=== PATIENT | male | born 1960 | race Two or more races ===

== ENCOUNTER 2020-03-11 23:16 | Inpatient (IN) | payer OTHER ==
[~2020-03-11] VITALS: Ht 177.8 cm; Wt 127.5 kg
[2020-03-12 01:11] LABS: Albumin 3.4 g/dL (3.4-5.0); BUN/Creatinine Ratio 10.1; Calcium 8.4 mg/dL (8.5-10.1); Potassium 3.6 mmol/L (3.5-5.1)
[2020-03-12 01:16] LABS: Bilirubin, Total 0.4 mg/dL (0.2-1.0); Total Protein 8.4 g/dL (6.4-8.2)
[2020-03-12 01:24] LABS: Basophils # (auto) 0.1 10 ^3/uL (0-0.2); Basophils % (auto) 1.1 % (0.0-2.0); Eosinophils # (auto) 0.4 10 ^3/uL (0-0.8); Eosinophils % (auto) 4.9 % (0.0-7.0); Hematocrit 44.9 % (41.0-53.0); Hemoglobin 15.5 g/dL (13.5-17.5); Lymphocytes # (auto) 4.1 10 ^3/uL (0.4-5.4); Lymphocytes % (auto) 47.2 % (10.0-50.0); Mean Corpuscular Hemoglobin 31.8 pg (28.0-32.0); Mean Corpuscular Hgb Conc. 34.6 g/dL (32.0-36.0); Mean Corpuscular Volume 91.7 fL (80.0-100.0); Monocytes # (auto) 0.8 10 ^3/uL (0-1.3); Monocytes % (auto) 8.9 % (0.0-12.0); Neutrophils # (auto) 3.3 10 ^3/uL (1.6-8.6); Neutrophils % (auto) 37.9 % (37.0-80.0); Nucleated Red Blood Cells % 0.1 %; Platelet Count (auto) 168 10^3/uL (140-450); Red Blood Cells 4.89 10^6/uL (4.5-5.90); Red Cell Distribution Width 13.4 % (11.8-14.3); White Blood Cell 8.7 10^3/uL (4.4-10.8)
[2020-03-12] MEDS ORDERED: ASPirin 81 mg TAB PO ONE (01:45)
[2020-03-12] MEDS ORDERED: ATORVASTATIN 20 MG TAB PO ONE (01:45)
[2020-03-12] MEDS ORDERED: ONDANSETRON HCL 4 MG/2 ML VIAL IV ONE (01:45)
[2020-03-12] MEDS ORDERED: MORPHINE SULFATE 4 MG/ML SYR/VIAL IV ONE (01:45)
[2020-03-12] MEDS ORDERED: HEPARIN SODIUM (PORCINE) 5000 UNITS/ML 1ML VIAL IV ONE (06:30)
[2020-03-12] MEDS ORDERED: NITROGLYCERIN 0.4 MG SL TAB SL PRN (07:30)
[2020-03-12] MEDS ORDERED: HYDROcodone-ACET 5/325MG TAB PO PRN (07:30)
[2020-03-12] MEDS ORDERED: LORazepam 0.5 MG TAB PO PRN (07:30)
[2020-03-12] MEDS ORDERED: DOCUSATE SOD 100 MG CAP PO PRN (07:30)
[2020-03-12] MEDS ORDERED: ONDANSETRON HCL 4 MG/2 ML VIAL IV PRN ×2 (07:30)
[2020-03-12] MEDS ORDERED: ACETAMINOPHEN 325 MG TAB PO PRN ×2 (07:30)
[2020-03-12] MEDS: HEPARIN DRIP/D5W 100UNITS/ML 250 ML IV SCH (07:30)
[2020-03-12] MEDS ORDERED: MORPHINE SULF INJ 2 MG/ML SYRINGE 1ML IV PRN (07:30)
[2020-03-12 07:31] LABS: INR 1.04 (0.9-1.15); Partial Thromboplastin Time 29.4 sec (23.64-32.05)
[2020-03-12 08:14] LABS: Basophils # (auto) 0.1 10 ^3/uL (0-0.2); Basophils % (auto) 0.7 % (0.0-2.0); Eosinophils # (auto) 0.3 10 ^3/uL (0-0.8); Eosinophils % (auto) 3.1 % (0.0-7.0); Hematocrit 44.2 % (41.0-53.0); Hemoglobin 14.9 g/dL (13.5-17.5); Lymphocytes # (auto) 4.3 10 ^3/uL (0.4-5.4); Lymphocytes % (auto) 42.1 % (10.0-50.0); Mean Corpuscular Hemoglobin 31.2 pg (28.0-32.0); Mean Corpuscular Hgb Conc. 33.8 g/dL (32.0-36.0); Mean Corpuscular Volume 92.5 fL (80.0-100.0); Monocytes # (auto) 0.8 10 ^3/uL (0-1.3); Monocytes % (auto) 8.1 % (0.0-12.0); Neutrophils # (auto) 4.7 10 ^3/uL (1.6-8.6); Nucleated Red Blood Cells % 0.2 %; Platelet Count (auto) 151 10^3/uL (140-450); Red Blood Cells 4.78 10^6/uL (4.5-5.90); Red Cell Distribution Width 13.2 % (11.8-14.3); White Blood Cell 10.3 10^3/uL (4.4-10.8)
[2020-03-12] MEDS: ASPirin 81 mg TAB PO SCH (08:14)
[2020-03-12] MEDS: SODIUM CHLORIDE 0.9% 1,000 ML IV SCH (08:28)
[2020-03-12 08:41] LABS: Anion Gap 7 (5-15); Blood Urea Nitrogen 13 mg/dL (7-18); Calcium 8.6 mg/dL (8.5-10.1); Carbon Dioxide 25 mmol/L (21-32); Chloride 102 mmol/L (98-107); Glucose 125 mg/dL (74-106); Potassium 3.8 mmol/L (3.5-5.1); Sodium 134 mmol/L (136-145)
[2020-03-12 08:44] LABS: BUN/Creatinine Ratio 11.7; Cholesterol 268 mg/dL (< 200); GFR African American 87 mL/min; GFR Non-African American 72 mL/min; HDL Cholesterol 21 mg/dL (40-59); Triglycerides 675 mg/dL (< 150)
[2020-03-12] MEDS ORDERED: DOCUSATE SOD 100 MG CAP PO SCH (10:00)
[2020-03-12] MEDS ORDERED: ENOXAPARIN SOD 30 MG/0.3 ML SYRINGE IV SCH (10:00)
--- NOTE | 2020-03-12 10:25 | NUR ---
Telemetry admit from [facility] admitted to Telemetry unit after SBAR received. Patient oriented to Marni Kathleen, RN primary RN, unit, room, bed, and unit policies regarding patient care and visiting hours. Patient now on continuous telemetry monitoring, tele box # 64 and telemetry reading on arrival to unit is SR 77. Patient placed on bedside oxygen, weighed by bedscale and encouraged to call if they need something. All questions and concerns addressed, patient verbalized understanding. Note:
[2020-03-12] MEDS: CARVEDILOL 3.125 MG TAB PO SCH (10:44)
[2020-03-12] MEDS: CLOPIDOGREL BISULFATE 75 MG TAB PO SCH (10:45)
[2020-03-12] MEDS: LISINOPRIL 20 MG TAB PO SCH (10:45)
--- NOTE | 2020-03-12 12:05 | NUR ---
Patient's : India Rosado: [phone]. She is requesting to speak with Dr. Luo. She states the patient has short-term memory loss and may not understand what he is being told by doctors.
--- NOTE | 2020-03-12 12:08 | NUR ---
Page placed to Dr. Luo re cardiology consult. Patient experiencing bradycardia and pauses. Patient is asymptomatic, denies chest pain.
[2020-03-12 12:58] LABS: Alcohol, Urine < 3.0 mg/dL (0-5); Amphetamine Screen, Urine NEGATIVE (NEGATIVE); Barbiturate Scree,Urine NEGATIVE (NEGATIVE); Benzodiazephine Screen, Urine NEGATIVE (NEGATIVE); Cannabinoid Screen, Urine NEGATIVE (NEGATIVE); Cocaine Screen, Urine NEGATIVE (NEGATIVE); Opiate Scree,Urine NEGATIVE (NEGATIVE); Phencyclidine Screen, Urine NEGATIVE (NEGATIVE)
[2020-03-12 14:03] LABS: INR 1.07 (0.9-1.15)
[2020-03-12 14:04] VITALS: BP 129/82
--- NOTE | 2020-03-12 14:21 | NUR ---
Return call from Dr. Luo. He was updated on patient's condition, troponin results, and Heparin drip.
--- NOTE | 2020-03-12 14:47 | NUR ---
PTT 37.9. Heparin drip increased by 200 units/hr. PTT in 6 hours.
--- NOTE | 2020-03-12 14:54 | NUR ---
Third troponin 57.0. Page placed to Dr. Luo.
[2020-03-12 17:00] VITALS: BP 104/69
[2020-03-12 20:00] VITALS: BP 129/82
--- NOTE | 2020-03-12 20:23 | NUR ---
PAGE OUT TO DR SHAHID BECAUSE PT WANTS A SLEEPING PILL-AND TO ASK MD IF HE WANTS A TROPONIN REDRAW BECAUSE THE TROPONIN LEVEL IS 57. [facility] NUMBER IS [phone] AND ANSWERING SERVICE REP'S NAME IS KATH.
--- NOTE | 2020-03-12 21:12 | NUR ---
HEPARIN DRIP ADJUSTED TO 12 ML PER HOUR BECAUSE APTT IS 43.6
[2020-03-12 21:38] LABS: INR 1.05 (0.9-1.15); Partial Thromboplastin Time 43.6 sec (23.64-32.05)
[2020-03-12 21:57] VITALS: BP 114/71
--- NOTE | 2020-03-12 22:06 | NUR ---
PT TOOK OFF PULSE OX AND C-PAP. STATES BOTH MACHINES ARE TOO NOISY AND HE CANNOT SLEEP WITH THEM ON.
[2020-03-12] MEDS: ATORVASTATIN 20 MG TAB PO SCH (22:34)
[2020-03-13] MEDS: SODIUM CHLORIDE 0.9% 1,000 ML IV SCH ×2 (00:08→17:27)
[2020-03-13] MEDS: HEPARIN DRIP/D5W 100UNITS/ML 250 ML IV SCH ×2 (03:47→20:08)
[2020-03-13] MEDS: CARVEDILOL 3.125 MG TAB PO SCH ×3 (04:31→21:27)
--- NOTE | 2020-03-13 05:18 | NUR ---
PT RESTING WITH EYES CLOSED RESP EVEN UNLAB VITAL SIGNS STABLE.
[2020-03-13 05:46] VITALS: BP 99/60
--- NOTE | 2020-03-13 06:08 | NUR ---
Heparin dose: APTT result is 56.0. No change in Heparin dose per protocol. Continue at 16 ML / HR. Addendum: 03/14/20 at 0611 by Mana Fermin RN correction date and time: 03/13/20 at 23:15.
[2020-03-13 06:28] LABS: Basophils # (auto) 0.1 10 ^3/uL (0-0.2); Eosinophils # (auto) 0.5 10 ^3/uL (0-0.8); Eosinophils % (auto) 5.7 % (0.0-7.0); Hematocrit 43.6 % (41.0-53.0); Hemoglobin 15.1 g/dL (13.5-17.5); Lymphocytes # (auto) 4.4 10 ^3/uL (0.4-5.4); Mean Corpuscular Hgb Conc. 34.7 g/dL (32.0-36.0); Mean Corpuscular Volume 92.1 fL (80.0-100.0); Monocytes # (auto) 0.7 10 ^3/uL (0-1.3); Monocytes % (auto) 8.2 % (0.0-12.0); Neutrophils # (auto) 2.9 10 ^3/uL (1.6-8.6); Neutrophils % (auto) 34.1 % (37.0-80.0); Nucleated Red Blood Cells % 0.4 %; Platelet Count (auto) 150 10^3/uL (140-450); Red Blood Cells 4.73 10^6/uL (4.5-5.90); Red Cell Distribution Width 13.6 % (11.8-14.3); White Blood Cell 8.6 10^3/uL (4.4-10.8)
--- NOTE | 2020-03-13 07:30 | NUR ---
Opening Shift Note RECEIVED REPORT FROM NOC RN. Assumed care of patient, awake and alert. No S/S of distress/SOB or pain. BED IN LOWEST, LOCKED POSITION WITH SIDERAILS UP x2 AND CALL LIGHT WITHIN REACH. Instructed on POC and to call for assist PRN, will continue to monitor for changes Q1hr and PRN.
[2020-03-13 09:00] VITALS: BP 99/64
[2020-03-13 10:03] LABS: INR 1.07 (0.9-1.15); Partial Thromboplastin Time 46.7 sec (23.64-32.05)
--- NOTE | 2020-03-13 10:13 | NUR ---
DR. Anna NAGY AT BEDSIDE.
--- NOTE | 2020-03-13 10:45 | NUR ---
PHARMACIST CALLED REGARDING HEPARIN DRIP. ORDERED INCREASE OF 2 ML/HR BASED ON PTT RESULT AND PROTOCOL. HEPARIN NOW AT 16 ML/HR.
[2020-03-13] MEDS: LISINOPRIL 20 MG TAB PO SCH (11:34)
[2020-03-13] MEDS: ASPirin 81 mg TAB PO SCH (11:34)
[2020-03-13] MEDS: CLOPIDOGREL BISULFATE 75 MG TAB PO SCH (11:35)
[2020-03-13 13:00] VITALS: BP 104/67
[2020-03-13 17:00] VITALS: BP 117/72
--- NOTE | 2020-03-13 17:03 | NUR ---
LEFT HEART CATH CONSENTS SIGNED AND PLACED IN CHART.
--- NOTE | 2020-03-13 18:52 | NUR ---
SPOKE W/ PT ABOUT NOC CPAP USE. HE STATES IT MAKES TOO MUCH NOISE AND THAT HE IS USED TO WEARING A SMALLER MASK. I EXPLAINED TO PT THAT I COULD TRY TO PLACE HIM ON A NASAL MASK, HE DECLINED. STATES THAT IF HE CHANGES HIS MIND HE WILL HAVE ME PAGED. CURRENTLY ON R/A 95%, HR 65 AND RR 20. NO DISTRESS NOTED.
--- NOTE | 2020-03-13 19:10 | NUR ---
Opening Shift Note Received report from SHYANN Chadwick and assumed care of patient, awake and alert. No S/S of distress/SOB or pain. With Heparin drip infusing well at 16 ML / hr .Instructed to call for assist if needed and verbalized understanding . Will continue to monitor .
[2020-03-13 19:17] LABS: INR 1.03 (0.9-1.15); Partial Thromboplastin Time 55.7 sec (23.64-32.05)
--- NOTE | 2020-03-13 20:00 | NUR ---
Heparin dose: APTT result is 55.7.No change on Heparin dose per protocol. Continue at 16 ml/hr. Will continue to monitor.
--- NOTE | 2020-03-13 20:20 | NUR ---
Called/paged paged for clarification re: Heparin drip. Waiting for call back. Continue care.
[2020-03-13] MEDS: ATORVASTATIN 20 MG TAB PO SCH (21:26)
[2020-03-13 22:00] VITALS: BP 108/58
--- NOTE | 2020-03-13 22:18 | NUR ---
returned call returned call, updated on patient status and reason for call, orders received.Hold Heparin drip at 0700. Continue care.
--- NOTE | 2020-03-13 22:25 | NUR ---
MD Called/paged paged re: Lovenox medication and patient on Heparin drip. Waiting for call back. Continue care.
--- NOTE | 2020-03-13 22:36 | NUR ---
returned call returned call, updated on patient status and reason for call, orders received.D/C Lovenox since patient on Heparin drip. Continue care.
[2020-03-13 23:43] LABS: INR 1.05 (0.9-1.15)
[2020-03-14 05:00] VITALS: BP 96/50
[2020-03-14 06:14] LABS: Potassium 4.1 mmol/L (3.5-5.1)
[2020-03-14 06:24] LABS: Albumin 3.3 g/dL (3.4-5.0); BUN/Creatinine Ratio 15.5; Bilirubin, Total 0.6 mg/dL (0.2-1.0); Calcium 8.8 mg/dL (8.5-10.1); Total Protein 7.9 g/dL (6.4-8.2)
--- NOTE | 2020-03-14 07:00 | NUR ---
D/C Heparin drip per Dr Luo. Patient scheduled for cardiac cath today. NPO post midnight. Will give report to SHYANN Barrett.
[2020-03-14 08:08] VITALS: BP 106/62
[2020-03-14] MEDS: CARVEDILOL 3.125 MG TAB PO SCH ×2 (10:00→22:05)
--- NOTE | 2020-03-14 11:30 | NUR ---
Dr. sheridan at bedside discussing POC with patient.
[2020-03-14] MEDS: SODIUM CHLORIDE 0.9% 1,000 ML IV SCH (11:48)
[2020-03-14] MEDS: CLOPIDOGREL BISULFATE 75 MG TAB PO SCH (11:48)
[2020-03-14] MEDS: ASPirin 81 mg TAB PO SCH (11:48)
[2020-03-14] MEDS: LISINOPRIL 20 MG TAB PO SCH (11:49)
--- NOTE | 2020-03-14 12:00 | NUR ---
PATIENT TAKEN DOWN FOR [facility]
[2020-03-14 12:20] LABS: Hepatitis B Surface Antibody Positive
[2020-03-14 12:30] VITALS: BP 103/55
[2020-03-14] MEDS ORDERED: LIDOCAINE 2%HCL (LOCAL ANESTH.) INJ 20ML MDV ONE (12:43)
[2020-03-14] MEDS ORDERED: IODIXANOL 320MG/ML 100ML BTL IV ONE (12:43)
[2020-03-14] MEDS ORDERED: fentaNYL CITRATE 100 MCG/2 ML VL ONE (12:50)
[2020-03-14] MEDS ORDERED: ANGIOMAX 250 MG VIAL IV ONE (12:50)
[2020-03-14] MEDS ORDERED: MIDAZOLAM HCL 1MG/1ML-2 ML VIAL ONE (12:50)
[2020-03-14] MEDS ORDERED: SODIUM CHL 0.9% 0 ML ONE (12:50)
[2020-03-14 12:58] LABS: Hepatitis A Total Antibody Positive
[2020-03-14 13:34] LABS: Hepatitis B Surface Antigen Negative (Negative)
[2020-03-14 13:35] LABS: Hepatitis C Antibody Negative (Negative)
[2020-03-14 13:36] LABS: Hepatitis B Core Total AB Negative
[2020-03-14] MEDS ORDERED: HEPARIN SODIUM (PORCINE) 5000 UNITS/ML 1ML VIAL IV ONE (14:00)
--- NOTE | 2020-03-14 14:06 | NUR ---
I received a message from Veronica at [facility]-for any discharge needs contact her at [phone].
[2020-03-14 15:26] LABS: Basophils # (auto) 0.1 10 ^3/uL (0-0.2); Basophils % (auto) 0.8 % (0.0-2.0); Eosinophils # (auto) 0.5 10 ^3/uL (0-0.8); Eosinophils % (auto) 6.6 % (0.0-7.0); Hematocrit 44.3 % (41.0-53.0); Hemoglobin 15.1 g/dL (13.5-17.5); Lymphocytes # (auto) 3.7 10 ^3/uL (0.4-5.4); Lymphocytes % (auto) 51.3 % (10.0-50.0); Mean Corpuscular Hemoglobin 31.5 pg (28.0-32.0); Mean Corpuscular Volume 92.8 fL (80.0-100.0); Monocytes # (auto) 0.6 10 ^3/uL (0-1.3); Neutrophils # (auto) 2.4 10 ^3/uL (1.6-8.6); Neutrophils % (auto) 33.3 % (37.0-80.0); Nucleated Red Blood Cells % 0.2 %; Platelet Count (auto) 158 10^3/uL (140-450); Red Blood Cells 4.78 10^6/uL (4.5-5.90); Red Cell Distribution Width 13.5 % (11.8-14.3); White Blood Cell 7.2 10^3/uL (4.4-10.8)
[2020-03-14 15:32] LABS: INR 1.07 (0.9-1.15); Partial Thromboplastin Time 29.1 sec (23.64-32.05)
[2020-03-14] MEDS ORDERED: HEPARIN SODIUM (PORCINE) 5000 UNITS/ML 1ML VIAL ONE (16:29)
[2020-03-14] MEDS: HEPARIN DRIP/D5W 100UNITS/ML 250 ML IV SCH (16:42)
[2020-03-14 16:43] VITALS: BP 110/57
--- NOTE | 2020-03-14 17:54 | NUR ---
SPOKE TO PATIENTS . 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
--- NOTE | 2020-03-14 18:06 | NUR ---
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
--- NOTE | 2020-03-14 19:00 | NUR ---
Opening Shift Note Assumed care of patient, awake and alert. No S/S of distress/SOB or pain. Instructed on POC and to call for assist PRN, will continue to monitor for changes Q1hr and PRN. Patient in the lowest possible position with bed rails up x2 and call light within reach.
--- NOTE | 2020-03-14 19:45 | NUR ---
Respiratory note: At bedside for ABG.
--- NOTE | 2020-03-14 19:50 | NUR ---
Respiratory note: PT REFUSING TO WEAR CPAP DURING HIS STAY HERE. PT COMPLAINING THAT CPAP UNIT IS NOT THE SAME AND ITS TOO LOUD AND DOES NOT LET HIM SLEEP. PT AWARE OF BENEFITS AND EXPLAINS, HE HAS HIS OWN IN THE ROOM CLOSET AND WAS TOLD HE THAT HE CANNOT USE IT HERE AT THIS FACILITY. PTS CPAP UNIT IS A (RES MED PORTABLE CPAP UNIT) IN PTS CLOSET AT THIS TIME. CONFIRMED INFORMATION WITH PATIENT HE IS NOT ABLE TO USE HIS OWN UNIT BUT HE IS ABLE TO USE HIS OWN CIRCUIT W/MASK INTERFACE. PT STILL REFUSING HE SAYS [facility] CPAP UNIT IS JUST NOT GOING TO WORK FOR HIM HERE. CPAP UNIT TAKEN OUT PTS ROOM AT THIS TIME. WILL DC ORDERED. COMMUNICATED POC TO RT ELVA TORRES.
--- NOTE | 2020-03-14 20:30 | NUR ---
MD Dr. Perez at bedside
[2020-03-14] MEDS ORDERED: LORazepam 2MG/ML-1ML VIAL IV PRN (21:00)
[2020-03-14 22:00] VITALS: BP 111/59
[2020-03-14] MEDS: ATORVASTATIN 20 MG TAB PO SCH (22:06)
[2020-03-14 23:19] LABS: INR 1.07 (0.9-1.15); Partial Thromboplastin Time 36.7 sec (23.64-32.05)
--- NOTE | 2020-03-14 23:25 | NUR ---
aPTT 36.7 Changed rate per protocol up 2ml/hr. New rate is 12ml/hr. Will wait for next lab draw to reevaluate. Will continue to monitor patient.
[2020-03-15] MEDS: SODIUM CHLORIDE 0.9% 1,000 ML IV SCH ×2 (02:00→18:48)
[2020-03-15 05:00] VITALS: BP 111/72
[2020-03-15 06:26] LABS: Potassium 3.9 mmol/L (3.5-5.1)
--- NOTE | 2020-03-15 06:30 | NUR ---
aPTT 42.6 Per protocol increased heparin drip units by 200, and by 2ml/hr New drip rate is 14ml/hr. Will continue to monitor.
[2020-03-15 06:31] LABS: INR 1.07 (0.9-1.15); Partial Thromboplastin Time 42.6 sec (23.64-32.05)
[2020-03-15 06:33] LABS: Albumin 3.4 g/dL (3.4-5.0); Bilirubin, Total 0.7 mg/dL (0.2-1.0); Calcium 8.8 mg/dL (8.5-10.1); Total Protein 8.2 g/dL (6.4-8.2)
--- NOTE | 2020-03-15 06:51 | NUR ---
Closing note patient in the lowest possible position with call light within reach. No complaints of pain at this time. Will endorse to day shift SHYANN Alcala
--- NOTE | 2020-03-15 07:30 | NUR ---
aPTT 63.2, no changes at this time. Rate still 16ml/hr. Addendum: 03/16/20 at 0138 by Amanda Watson RN time was 1929 (nighttime draw)
--- NOTE | 2020-03-15 08:30 | NUR ---
RECEIVED CALL FROM PATIENTS , KIRTI, SHE IS CONCERNED THAT HER IS NOT USING A CPAP FOR HIS SLEEP APNEA. PATIENT NEEDS A NOSE MASK, NOT A MOUTH MASK. RT IS CHECKING TO SEE IF WE CAN PROVIDE A NOSE MASK
[2020-03-15 08:53] VITALS: BP 105/70
--- NOTE | 2020-03-15 09:55 | NUR ---
RECEIVED ORDER FROM DR BERRY FOR A ONE TIME DOSE OF ATIVAN PRIOR TO BRAIN/HEAD MRI. ORDER CARRIED OUT RECEIVED
[2020-03-15] MEDS: CARVEDILOL 3.125 MG TAB PO SCH ×2 (10:00→21:54)
[2020-03-15] MEDS ORDERED: LORazepam 2MG/ML-1ML VIAL IV ONE (10:00)
[2020-03-15] MEDS ORDERED: LORazepam 2MG/ML-1ML VIAL ONE (10:14)
[2020-03-15] MEDS ORDERED: GADOTERIDOL 279.3mg/mL 20ml Vial IV ONE (10:26)
--- NOTE | 2020-03-15 11:07 | NUR ---
DR LEIJA BEDSIDE WITH PATIENT
--- NOTE | 2020-03-15 11:10 | NUR ---
DR GODWIN BEDSIDE WITH PATIENT
--- NOTE | 2020-03-15 11:30 | NUR ---
MED REC SPOKE TO PATIENTS , KIRTI, REGARDING HOME MEDICATIONS. PER KIRTI, PATIENT STOPPED TAKING ALL MEDS LAST MARCH. SHE WILL PUT TOGETHER A LIST OF THE MEDS HE STOPPED TAKING AND PROVIDE TO US
[2020-03-15] MEDS: ASPirin 81 mg TAB PO SCH (11:45)
[2020-03-15] MEDS: LISINOPRIL 20 MG TAB PO SCH (11:46)
--- NOTE | 2020-03-15 11:50 | NUR ---
DR Alma Delia NAGY BEDSIDE WITH PATIENT
[2020-03-15 12:56] LABS: INR 1.08 (0.9-1.15); Partial Thromboplastin Time 43.7 sec (23.64-32.05)
--- NOTE | 2020-03-15 12:57 | NUR ---
ALESSANDRA HANLEY, PATIENTS , KIRTI, , WOULD LIKE TO DISCUSS POSSIBLY TRANSFERRING PATIENT TO [facility] FOR PROCEDURE. Addendum: 03/15/20 at 1801 by IKE PITTS RN RN I ALSO NEED CLARIFICATION ON THE "PLATELET FUNCTION TEST" HE REQUESTED TO HAVE ORDERED FOR TOMORROW. I NEED CLARIFICATION ON THE EXACT TEST SO IT CAN BE ORDERED, LAB AND CHARGE NURSE UNSURE WELL.
[2020-03-15 13:00] VITALS: BP 121/83
[2020-03-15] MEDS: HEPARIN DRIP/D5W 100UNITS/ML 250 ML IV SCH (13:44)
--- NOTE | 2020-03-15 15:18 | NUR ---
Est energy needs 7916-3246 kcal (25-30 kcal/kg IBW 74.5kg) Est protein needs 75-82g (1-1.1g/kg IBW 74.5) Will reassess prn. Addendum: 03/15/20 at [address] Amended: Links added.
[2020-03-15] MEDS ORDERED: GEMF600T7 PO (16:03)
[2020-03-15] MEDS ORDERED: GABA250S2 PO (16:04)
[2020-03-15] MEDS ORDERED: LEVO200T7 PO (16:05)
[2020-03-15] MEDS ORDERED: SERT-160 PO (16:07)
[2020-03-15] MEDS ORDERED: TEST200I32 IJ (16:14)
--- NOTE | 2020-03-15 16:15 | NUR ---
HOME MEDS UPDATED MED REC, PATIENT HAS NOT TAKEN ANY MEDICATION SINCE March, BUT MEDS PRESCRIBED HAS BEEN UPDATED. INFO GIVEN BY , KIRTI
[2020-03-15 17:00] VITALS: BP 122/71
[2020-03-15 18:37] LABS: INR 1.11 (0.9-1.15); Partial Thromboplastin Time 59.2 sec (23.64-32.05)
--- NOTE | 2020-03-15 19:00 | NUR ---
Opening Shift Note Assumed care of patient, awake and alert. No S/S of distress/SOB or pain. Instructed on POC and to call for assist PRN, will continue to monitor for changes Q1hr and PRN. Patient in the lowest possible position with call light within reach.
--- NOTE | 2020-03-15 19:30 | NUR ---
aPTT 59.2, no changes at this time. Rate still 16ml/hr.
[2020-03-15 20:00] VITALS: BP 108/62
--- NOTE | 2020-03-15 21:50 | NUR ---
Respiratory note: PLACED PT ON CPAP UNIT. UNIT CONNECTED TO RED OUTLET AND O2 SOURCE. PT WOULD LIKE TO USE HIS CIRCUIT W/INTERFACE. I TOOK PTS CIRCUIT W/INTERFACE OUT HIS BAG FROM ROOM CLOSET. PT NOTICED HIS INTERFACE HEAD SILICONE STRAP IS BROKEN. PT AWARE AND STATES HE CAN FIX IT LATER HE HAS EXTRA PARTS HE HAS AT HOME. PLACED PT ON DVH STOCK (S) NASAL MASK. PT APPEARS COMFORTABLE. CONTINUOS POX AT BEDSIDE PER PROTOCOL. POX PROBE ON LEFT INDEX FINGER. ALARMS ARE SET AND AUDIBLE. SHYANN MARTINEZ AT BEDSIDE AND AWARE OF PLACEMENT. WILL CONTINUE TO MONITOR PTS Q2H CPAP CHECKS.
[2020-03-15] MEDS: ATORVASTATIN 20 MG TAB PO SCH (21:54)
[2020-03-15 22:15] VITALS: BP 108/62
--- NOTE | 2020-03-16 00:18 | NUR ---
Respiratory note: AT BEDSIDE FOR ROUTINE CPAP CHECK. PT COMFORTABLY SLEEPING. NO CHANGES MADE WILL CONTINUE TO MONITOR
[2020-03-16 01:02] LABS: INR 1.09 (0.9-1.15); Partial Thromboplastin Time 63.2 sec (23.64-32.05)
--- NOTE | 2020-03-16 01:30 | NUR ---
aPTT 63.2, no changes at this time. Rate still 16ml/hr.
--- NOTE | 2020-03-16 02:35 | NUR ---
Respiratory note: AT BEDSIDE FOR ROUTINE CPAP CHECK. PT COMFORTABLY SLEEPING. NO CHANGES MADE WILL CONTINUE TO MONITOR.
--- NOTE | 2020-03-16 04:08 | NUR ---
Respiratory note: AT BEDSIDE FOR END OF SHIFT CPAP CHECK. WILL HAVE DAY SHIFT CONTINUE POC.
[2020-03-16 05:00] VITALS: BP 129/84
[2020-03-16 06:07] LABS: INR 1.09 (0.9-1.15)
[2020-03-16 06:13] LABS: Partial Thromboplastin Time 73.7 sec (23.64-32.05)
--- NOTE | 2020-03-16 06:23 | NUR ---
aPTT 73.7 No changes at this time. Rate still 16ml/hr.
[2020-03-16] MEDS: HEPARIN DRIP/D5W 100UNITS/ML 250 ML IV SCH (06:47)
--- NOTE | 2020-03-16 07:30 | NUR ---
PTT PATIENT HAS ACHIEVED THREE THERAPEUTIC PTTS IN A ROW WITH NO RATE CHANGE OR BOLUS. PTT LAB DRAWS WILL NOW BE EVERY 24H INSTEAD OF EVERY 6H. HEPARIN RATE REMAINS AT 16.
--- NOTE | 2020-03-16 08:00 | NUR ---
OPENING SHIFT NOTE ASSUMED CARE OF PATIENT AWAKE AND ALERT. NO S/S OF DISTRESS NOTED OR COMPLAINTS OF PAIN. UPDATED PATIENT ON POC FOR THE DAY AND ALL QUESTIONS ANSWERED. BED IS IN LOWEST, LOCKED POSITION WITH SIDE RAILS UP X2 AND CALL LIGHT WITHIN REACH. WILL CONTINUE TO MONITOR Q1H AND PRN.
--- NOTE | 2020-03-16 08:20 | NUR ---
Respiratory note: FOUND PT OFF CPAP FOR NOC. PT IN NO DISTRESS AT THIS TIME.
[2020-03-16 08:49] VITALS: BP 110/78
[2020-03-16] MEDS: LISINOPRIL 20 MG TAB PO SCH (09:45)
[2020-03-16] MEDS: CARVEDILOL 3.125 MG TAB PO SCH (09:45)
[2020-03-16] MEDS: ASPirin 81 mg TAB PO SCH (09:45)
--- NOTE | 2020-03-16 10:20 | NUR ---
AT BEDSIDE DR NAGY AT BEDSIDE UPDATING PATIENT ON POC
--- NOTE | 2020-03-16 10:39 | NUR ---
PAGED PAGED DR GODWIN. REQUESTING TO SPEAK TO HIM BEFORE TRANSFER.
[2020-03-16] MEDS: SODIUM CHLORIDE 0.9% 1,000 ML IV SCH (11:22)
--- NOTE | 2020-03-16 12:09 | NUR ---
I spoke with Dr. Lomas regarding the transfer to higher level of care order. He spoke with Dr. Kyrie Ramirez at [facility] who is accepting this patient. I called [facility] cardiothoracic [phone]-they will have Fanta give me a call back. I faxed clinical information to [facility] [phone]. I called the [facility] Transfer Center [phone] and left message for them to call me back regarding this request.
[2020-03-16 12:32] VITALS: BP 109/65
--- NOTE | 2020-03-16 14:12 | NUR ---
I spoke with Cecilia at [facility] Transfer Center, provided her with additional clinical information as requested-she will review the information and give me a call back.
--- NOTE | 2020-03-16 15:32 | NUR ---
I received a call from Martha at [facility] Transfer Center-patient will be going to [facility] tele room 5312, nurse to call report to [phone]-Dr. Ramirez accepting patient. Patient will be going to the [facility] location at [address] [place] [id number]. I called [facility] and spoke with Tanvir, set supervisor opening and picking time for 2000-critical care transport with heparin gtt. I let Tanvir at [facility] know that per [facility], they need to call [phone] 30 minutes prior to their arrival to [facility]. I relayed this information to nurse Anderson.
[2020-03-16 16:50] VITALS: BP 106/66
--- NOTE | 2020-03-16 18:45 | NUR ---
FAMILY AT BEDSIDE PER ADMINISTRATION, KIRTI IS AT BEDSIDE VISITING WITH PATIENT BEFORE TRANSFER.
--- NOTE | 2020-03-16 18:49 | NUR ---
DISCHARGE DISCHARGE PACKET PRINTED AND PATIENT SIGNED HIS CONSENT FOR TRANSFER. WILL ENDORSE COPYING OF TRANSFER PAPERS AND CALLING REPORT TO [facility] TO PHYSICS TECHNICIAN RN SEAMSTRESS FITTER TIME IS MORE THAN AN HOUR AWAY.
--- NOTE | 2020-03-16 19:00 | NUR ---
Opening Shift Note Assumed care of patient, awake and alert. No S/S of distress/SOB or pain. Patient to be d/c'd tonight. Awaiting [facility].
--- NOTE | 2020-03-16 20:21 | NUR ---
Patient D/C to [facility] for transfer to [facility]. Last vitals T:97.8 P: 65 R: 18 B/P: 130/70 O2sat: 96, on room air. Right AC IV was taken out because it was leaking and no good. IV removal was clean with catheter in tact. Telemetry box #64 was D/C and sent back to ICU. Report was given to [facility] transfer nurse to keep Heparin drip running. Patient left with heparin drip running at 16ml/hr with a last known aPTT at 73.7. Per protocol next lab draw to be done at 0630 on 03/17, endorsed to receiving nurse at [facility]. Report called and given to [facility] Nurse Juwan who was receiving patient to [address] [place] [address] room 53. All questions answered and all history of patient given, requested a nose CPAP machine which was relayed to the nurse. Patient left without pain and breathing was unlabored and even. No complications noted at time of transfer. Care given to [facility].
== END 2020-03-16 20:15 | disposition short-term general hospital (02) | DRG 281 ==
LOC: ER 23:16 → TELE 23:17 → TELE-WESTW 03-12 10:37
PROVIDERS: ADMIT Hospitalist; ATTEND Family Medicine
PROC: 4A023N7 Measurement of Cardiac Sampling and Pressure, Left Heart, Percutaneous Approach (ICD-10-PCS; principal; 2020-03-14)
PROC: B2111ZZ Fluoroscopy of Multiple Coronary Arteries using Low Osmolar Contrast (ICD-10-PCS; 2020-03-14)
PROC: B2151ZZ Fluoroscopy of Left Heart using Low Osmolar Contrast (ICD-10-PCS; 2020-03-14)
DX: I21.4 Non-ST elevation (NSTEMI) myocardial infarction (principal); Z68.41 Body mass index [BMI] 40.0-44.9, adult; E03.9 Hypothyroidism, unspecified; E78.5 Hyperlipidemia, unspecified; G47.30 Sleep apnea, unspecified; R74.0 Nonspecific elevation of levels of transaminase and lactic acid dehydrogenase [LDH]; I10 Essential (primary) hypertension; I25.10 Atherosclerotic heart disease of native coronary artery without angina pectoris; E66.01 Morbid (severe) obesity due to excess calories; R09.02 Hypoxemia; E78.00 Pure hypercholesterolemia, unspecified; Z83.3 Family history of diabetes mellitus; Z79.899 Other long term (current) drug therapy
CPT/HCPCS: 36415; 36600; 70553; 71046; 80048; 80053; 80061; 80307; 82805; 83880; 84443; 84484; 85025; 85576; 85610; 85730; 86704; 86706; 86708; 86803; 86850; 86900; 86901; 87340; 93005; 93306; 93886; 94660; 96365; 96375; 96376; 99152; G0378; J2250; J2405; Q9967